=== PATIENT | male | born 1930 | race Two or more races ===

== ENCOUNTER 2018-01-22 12:45 | Inpatient (IN) | payer MEDICARE, OTHER ==
[2018-01-22] VITALS (13 sets, daily range): BP systolic 102–151; BP diastolic 33–65
[~2018-01-22] VITALS: Ht 172.7 cm; Wt 57.0 kg
[2018-01-22] MEDS ORDERED: MORPHINE SULF INJ 2 MG/ML SYRINGE 1ML IV PRN (13:15)
[2018-01-22] MEDS ORDERED: NITROGLYCERIN 0.4 MG SL TAB SL PRN (13:15)
[2018-01-22] MEDS ORDERED: HYDROcodone-ACET 5/325MG TAB PO PRN (13:30)
[2018-01-22] MEDS ORDERED: DOPamine 1600MCG/ML D5W 250 ML IV SCH (13:44)
[2018-01-22] MEDS: SODIUM CHLOR 0.9% PF (SALINE LOCK) 10ML VIAL IV SCH ×2 (14:00→22:00)
[2018-01-22] MEDS ORDERED: DOPamine 3200MCG/ML 250 ML IV SCH ×2 (14:09→14:15)
[2018-01-22] MEDS: TAMSULOSIN HYDROCHLORIDE 0.4 MG CAP PO SCH (18:00)
[2018-01-22 18:44] LABS: Albumin 2.5 g/dL (3.4-5.0); BUN/Creatinine Ratio 31.3; Bilirubin, Total 0.9 mg/dL (0.2-1.0); Calcium 8.2 mg/dL (8.5-10.1); Potassium 4.3 mmol/L (3.5-5.1); Total Protein 6.9 g/dL (6.4-8.2)
[2018-01-22 19:49] LABS: Basophils # (auto) 0 uL; Basophils % (auto) 0.6 % (0.0-2.0); Eosinophils # (auto) 0.1 uL; Eosinophils % (auto) 1.6 % (0.0-7.0); Hemoglobin 12.1 g/dL (13.5-17.5); Lymphocytes # (auto) 1.1 uL; Mean Corpuscular Hemoglobin 31.8 pg (28.0-32.0); Mean Corpuscular Hgb Conc. 32.6 g/dL (32.0-36.0); Mean Corpuscular Volume 97.5 fL (80.0-100.0); Monocytes # (auto) 0.7 uL; Monocytes % (auto) 13.4 % (0.0-12.0); Neutrophils # (auto) 3.5 uL; Neutrophils % (auto) 63.4 % (37.0-80.0); Nucleated Red Blood Cells % 0.2 %; Red Blood Cells 3.79 10^6/uL (4.5-5.90); Red Cell Distribution Width 14.6 % (11.8-14.3); White Blood Cell 5.4 10^3/uL (4.4-10.8)
[2018-01-22 20:41] LABS: Platelet Count (auto) 95 10^3/uL (140-450)
[2018-01-22] MEDS: ATORVASTATIN 20 MG TAB PO SCH (22:00)
[2018-01-22] MEDS ORDERED: SODIUM CHLORIDE 0.9% 1,000 ML IV SCH (22:00)
[2018-01-23] VITALS (62 sets, daily range): BP systolic 93–173; BP diastolic 31–86
[2018-01-23 03:48] LABS: Basophils # (auto) 0 uL; Basophils % (auto) 0.3 % (0.0-2.0); Eosinophils # (auto) 0.1 uL; Eosinophils % (auto) 1.1 % (0.0-7.0); Hematocrit 36.2 % (41.0-53.0); Hemoglobin 11.9 g/dL (13.5-17.5); Lymphocytes # (auto) 1.2 uL; Lymphocytes % (auto) 18.4 % (10.0-50.0); Mean Corpuscular Hemoglobin 31.7 pg (28.0-32.0); Mean Corpuscular Hgb Conc. 32.9 g/dL (32.0-36.0); Mean Corpuscular Volume 96.3 fL (80.0-100.0); Monocytes # (auto) 0.7 uL; Monocytes % (auto) 9.8 % (0.0-12.0); Neutrophils # (auto) 4.7 uL; Neutrophils % (auto) 70.4 % (37.0-80.0); Platelet Count (auto) 103 10^3/uL (140-450); Red Blood Cells 3.76 10^6/uL (4.5-5.90); Red Cell Distribution Width 14.5 % (11.8-14.3); White Blood Cell 6.7 10^3/uL (4.4-10.8)
[2018-01-23 03:53] LABS: INR 1.05 (0.9-1.15); Partial Thromboplastin Time 30.6 sec (22.64-33.71); Prothrombin Time 11.5 sec (9.37-12.3)
[2018-01-23 03:58] LABS: Albumin 2.3 g/dL (3.4-5.0); BUN/Creatinine Ratio 37.9; Calcium 7.7 mg/dL (8.5-10.1); Potassium 4.3 mmol/L (3.5-5.1)
[2018-01-23 04:01] LABS: Bilirubin, Total 0.9 mg/dL (0.2-1.0); Total Protein 6.3 g/dL (6.4-8.2)
[2018-01-23] MEDS ORDERED: VANCOMYCIN HCL 1000 MG VL IR ONE (07:45)
[2018-01-23] MEDS ORDERED: VANCOMYCIN 1GM/250ML 250 ML IV ONE (07:45)
[2018-01-23] MEDS ORDERED: fentaNYL CITRATE 100 MCG/2 ML VL ONE (08:05)
[2018-01-23] MEDS ORDERED: MIDAZOLAM HCL 1MG/1ML-2 ML VIAL ONE (08:06)
[2018-01-23] MEDS ORDERED: LIDOCAINE 2%HCL (LOCAL ANESTH.) INJ 20ML MDV ONE (08:26)
[2018-01-23] MEDS ORDERED: diphenhdrAMINE HCL 50 MG/1 ML VL ONE (08:40)
[2018-01-23] MEDS: amLODIPine BESYLATE 5 MG TAB PO SCH (11:13)
[2018-01-23] MEDS: PANTOPRAZOLE 40 MG TAB PO SCH (11:14)
[2018-01-23] MEDS: SODIUM CHLOR 0.9% PF (SALINE LOCK) 10ML VIAL IV SCH ×2 (14:00→22:00)
[2018-01-23] MEDS: TAMSULOSIN HYDROCHLORIDE 0.4 MG CAP PO SCH (18:24)
[2018-01-23] MEDS: ATORVASTATIN 20 MG TAB PO SCH (22:00)
[2018-01-24 05:26] VITALS: BP 127/65
[2018-01-24] MEDS: SODIUM CHLOR 0.9% PF (SALINE LOCK) 10ML VIAL IV SCH ×2 (06:13→14:00)
[2018-01-24 08:34] VITALS: BP 124/56
[2018-01-24] MEDS: amLODIPine BESYLATE 5 MG TAB PO SCH (09:50)
[2018-01-24] MEDS: PANTOPRAZOLE 40 MG TAB PO SCH (09:50)
[2018-01-24 12:27] VITALS: BP 111/69
[2018-01-24 13:09] VITALS: BP 124/56
[2018-01-24 17:26] VITALS: BP 108/64
[2018-01-24] MEDS: TAMSULOSIN HYDROCHLORIDE 0.4 MG CAP PO SCH (17:29)
== END 2018-01-24 19:50 | disposition home health service (06) | DRG 258 ==
LOC: TELE-CENTR 12:45 → DOU IN ICU 19:10 → ICU WEST 21:21 → TELE-EAST 01-23 22:49
PROVIDERS: ADMIT Internal Medicine; ATTEND Internal Medicine
PROC: 0JPT0PZ Removal of Cardiac Rhythm Related Device from Trunk Subcutaneous Tissue and Fascia, Open Approach (ICD-10-PCS; principal; 2018-01-23)
PROC: 0JH606Z Insertion of Pacemaker, Dual Chamber into Chest Subcutaneous Tissue and Fascia, Open Approach (ICD-10-PCS; 2018-01-23)
DX: T82.111A Breakdown (mechanical) of cardiac pulse generator (battery), initial encounter (principal); E43 Unspecified severe protein-calorie malnutrition; I44.2 Atrioventricular block, complete; I13.0 Hypertensive heart and chronic kidney disease with heart failure and stage 1 through stage 4 chronic kidney disease, or unspecified chronic kidney disease; Z68.1 Body mass index [BMI] 19.9 or less, adult; N18.9 Chronic kidney disease, unspecified; F03.90 Unspecified dementia, unspecified severity, without behavioral disturbance, psychotic disturbance, mood disturbance, and anxiety; F29 Unspecified psychosis not due to a substance or known physiological condition; I50.9 Heart failure, unspecified; I25.10 Atherosclerotic heart disease of native coronary artery without angina pectoris; Z95.0 Presence of cardiac pacemaker
CPT/HCPCS: 33228; 36415; 71045; 80053; 83735; 85025; 85610; 85730; 87081; 93005; 99152; C1785; J1265; J2250